=== PATIENT | female | born 1955 | race Two or more races ===

== ENCOUNTER 2023-04-02 10:21 | Emergency (ER) | payer OTHER ==
[~2023-04-02] VITALS: Ht 165.1 cm; Wt 88.8 kg
[2023-04-02] MEDS ORDERED: LACTATED RINGER'S 1,000 ML IV ONE (10:45)
[2023-04-02] MEDS ORDERED: KETOROLAC TROMETH 30 MG/ML 1ML VIAL IV ONE (10:45)
[2023-04-02 11:17] LABS: Basophils # (auto) 0.1 10 ^3/uL (0-0.2); Basophils % (auto) 0.6 % (0.0-2.0); Eosinophils # (auto) 0.1 10 ^3/uL (0-0.8); Eosinophils % (auto) 1.2 % (0.0-7.0); Hematocrit 47.5 % (36.0-46.0); Hemoglobin 15.7 g/dL (12.2-16.2); Lymphocytes # (auto) 3.4 10 ^3/uL (0.4-5.4); Mean Corpuscular Hemoglobin 29.8 pg (28.0-32.0); Mean Corpuscular Volume 90.4 fL (80.0-100.0); Monocytes # (auto) 0.9 10 ^3/uL (0-1.3); Monocytes % (auto) 7.5 % (0.0-12.0); Neutrophils % (auto) 60.7 % (37.0-80.0); Red Blood Cells 5.25 10^6/uL (4.0-5.20); Red Cell Distribution Width 13.7 % (11.8-14.3); White Blood Cell 11.5 10^3/uL (4.4-10.8)
[2023-04-02 11:37] LABS: Alanine Aminotransferase 27 U/L (7-40); Albumin 4.8 g/dL (3.2-4.8); Alkaline Phosphatase 84 U/L (46-116); Anion Gap 6 (5-15); Aspartate Aminotransferase 14 U/L (13-40); BUN/Creatinine Ratio 18.2 (10.0-20.0); Bilirubin, Total 0.5 mg/dL (0.2-1.0); Blood Urea Nitrogen 12 mg/dL (9-23); Calcium 10.5 mg/dL (8.5-10.1); Carbon Dioxide 29 mmol/L (20-30); Chloride 106 mmol/L (98-107); Glucose 115 mg/dL (74-106); Potassium 3.5 mmol/L (3.5-5.1); Sodium 141 mmol/L (136-145); Total Protein 7.3 g/dL (5.7-8.2)
[2023-04-02 11:52] LABS: Urine Bacteria FEW /hpf (None Seen); Urine Blood Negative /uL (Negative); Urine Clarity Clear (Clear); Urine Color Yellow (Yellow); Urine Protein, UAD Negative (Negative); Urine Specific Gravity 1.006 (1.001-1.035); Urine Urobilinogen Normal (Negative); Urine WBC 1 /hpf (0 - 5); Urine pH 5.5 (5.0-8.0)
[2023-04-02 11:52] LABS: Lipase 40 U/L (12-53)
[2023-04-02 16:01] VITALS: BP 115/48; PULSE 93; RESP 18; TEMP 97.9; O2SAT 96
== END 2023-04-02 16:10 | disposition home or self-care (01) ==
LOC: ER 10:21 → EDSEX 10:21 → ER 16:10
DX: K59.00 Constipation, unspecified (principal); E11.9 Type 2 diabetes mellitus without complications; J45.909 Unspecified asthma, uncomplicated; Z98.890 Other specified postprocedural states
CPT/HCPCS: 36415; 74176; 76705; 76856; 80053; 81001; 83690; 85025; 93005; 96361; 96374; 99285; J1885; J7030

== ENCOUNTER 2023-10-01 10:08 | Emergency (ER) | payer OTHER ==
[~2023-10-01] VITALS: Ht 165.1 cm; Wt 89.6 kg
[2023-10-01] MEDS: KETOROLAC TROMETH 30 MG/ML 1ML VIAL IM ONE (12:10)
[2023-10-01] MEDS: methylPREDNISolone SOD SUCC 125 MG/2 ML VL IM ONE (12:10)
[2023-10-01 13:10] VITALS: PULSE 70; RESP 22; O2SAT 97
[2023-10-01 13:20] VITALS: BP 115/69; PULSE 70; RESP 22; TEMP 97.6; O2SAT 97
== END 2023-10-01 13:29 | disposition home or self-care (01) ==
LOC: ER 10:08
DX: S86.111A Strain of other muscle(s) and tendon(s) of posterior muscle group at lower leg level, right leg, initial encounter (principal); E11.9 Type 2 diabetes mellitus without complications; J45.909 Unspecified asthma, uncomplicated; Z98.890 Other specified postprocedural states; X58.XXXA Exposure to other specified factors, initial encounter; Y93.89 Activity, other specified; Y92.89 Other specified places as the place of occurrence of the external cause; Y99.8 Other external cause status
CPT/HCPCS: 73590; 96372; 99284; J1885; J2919

== ENCOUNTER 2024-07-30 09:48 | Inpatient (IN) | payer OTHER ==
[~2024-07-30] VITALS: Ht 165.1 cm; Wt 85.5 kg
[2024-07-30] MEDS: HYDROcodone-ACET 10/325MG TAB PO ONE (10:30)
--- NOTE | 2024-07-30 10:58 | ED.PDOC ---
History of Present Illness HPI Comments 69-year-old female who comes in with chief complaint of neck pain and leg pain. The patient has a history of sciatica and states that the pain also seems to be going down the right leg. She did have some mild swelling of her feet but now she is also having some palpitations. She denies any nausea, vomiting or diarrhea. She states that the palpitations actually started last night when her neck and back pain started. She denies any chest pain or shortness for breath. The patient denies any fever or chills. Chief Complaint: Lower Extremity Time Seen by MD: 10:22 Primary Care Provider: VENANCIO Sanchez Notes: Nurses Notes, Medications, Allergies (No allergies to medication) Allergies: Coded Allergies: NO KNOWN ALLERGIES (Unverified , 04/02/23) Information Source: Patient Mode of Arrival: Ambulatory Severity: Moderate Timing: Days Duration: Since onset Prehospital treatment: None Associated signs and symptoms No nausea, vomiting or diarrhea. The patient is having some palpitations. Past Medical History PAST MEDICAL HISTORY: Asthma, DM Past Medical History (Other): Sciatica, fibromyalgia Surgical History: Hernia Repair, Hysterectomy, Tonsillectomy Surgical History (Other): Colon tumor removal [employer] History: No Pertinent [employer] History Family History Family History: Reviewed,noncontributory to illness Social History Smoker: Non-Smoker Alcohol: Denies ETOH Use Drugs: Denies Drug Use Lives In: Home Constitutional: denies: chills, diaphoresis, fatigue, fever, malaise, sweats, weakness, others EENTM: denies: blurred vision, double vision, ear bleeding, ear discharge, ear drainage, ear pain, ear ringing, eye pain, eye redness, hearing loss, mouth pain, mouth swelling, nasal discharge, nose bleeding, nose congestion, nose pain, photophobia, tearing, throat pain, throat swelling, voice changes, others Respiratory: denies: cough, hemoptysis, orthopnea, SOB at rest, shortness of breath, SOB with excertion, stridor, wheezing, others Cardiovascular: denies: chest pain, dizzy spells, diaphoresis, Dyspnea on exertion, edema, irregular heart beat, left arm pain, lightheadedness, palpitations, PND, syncope, others Gastrointestinal: denies: abdomen distended, abdominal pain, blood streaked bowels, constipated, diarrhea, dysphagia, difficulty swallowing, hematemesis, melena, nausea, poor appetite, poor fluid intake, rectal bleeding, rectal pain, vomiting, others Genitourinary: denies: abnormal vagina bleeding, burning, dyspareunia, dysuria, flank pain, frequency, hematuria, incontinence, pain, , vagina discharge, urgency, others Neurological: denies: dizziness, fainting, headache, left sided numbness, left sided weakness, numbness, paresthesia, pre-existing deficit, right sided numbness, right sided weakness, seizure, speech problems, tingling, tremors, weakness, others Musculoskeletal: reports: back pain, neck pain; denies: gout, joint pain, joint swelling, muscle pain, muscle stiffness, others Integumetry: denies: bruises, change in color, change in hair/nails, dryness, laceration, lesions, lumps, rash, wounds, others Allergic/Immunocompromised: denies: Difficulty Healing, Frequent Infections, Hives, Itching, others Hematologic/Lymphatic: denies: anemia, blood clots, easy bleeding, easy bruising, swollen glands, others Endocrine: denies: excessive hunger, excessive sweating, excessive thirst, excessive urination, flushing, intolerance to cold, intolerance to heat, unexplained weight gain, unexplained weight loss, others Psychiatric: denies: anxiety, bipolar disorder, depression, hopeless, panic disorder, schizophrenia, sleepless, suicidal, others Physical Exam General Appearance: Moderate Distress HEENT: Normal ENT Inspection, Pharynx Normal, TMs Normal Neck: Limited Range of Motion, Tender Lateral Respiratory: Chest Non-Tender, Lungs Clear, No Accessory Muscle Use, No Resp iratory Distress, Normal Breath Sounds Cardiovascular: No Edema, No JVD, No Murmur, No Gallop, Normal Peripheral Pulses, Regular Rate/Rhythm Breast Exam: Deferred Gastrointestinal: No Organomegaly, Non Tender, No Pulsatile Mass, Normal Bowel Sounds, Soft Genitalia: Deferred Pelvic: Deferred Rectal: Deferred Extremities: No calf tenderness, Normal capillary refill, Normal inspection, Normal range of motion, Non-tender, No pedal edema Musculoskeletal : Apperance: Normal Neurologic: Alert, labor relations analyst II-XII nml as Tested, Motor Weakness, Normal Affect, Normal Mood, No Sensory Deficits Cerebellar Function: Normal Reflexes: Normal Skin: Dry, Normal Color, Warm Lymphatic: No Adenopathy Was a procedure done? Was a procedure done?: No Differential Dx Considerations may include: Strain, generalized weakness, ACS, ME X-Ray, Labs, Meds, VS Vital Signs Date Time Temp Pulse Resp B/P (MAP) Pulse Ox O2 Delivery O2 Flow Rate FiO2 07/30/24 12:48 98.8 79 18 112/68 (83) 98 98.8 07/30/24 11:21 81 07/30/24 11:00 Room Air* 0 21 07/30/24 10:20 87 07/30/24 10:18 98.3 91 18 116/58 (77) 96 98.3 Lab Test 07/30/24 11:30 07/30/24 10:54 07/30/24 10:36 Range/Units Troponin I High Sensitivity 3 L 4 </=34 ng/L Urine Color Yellow Yellow Urine Clarity Clear Clear Urine pH 5.5 5.0-9.0 Urine Specific [place] 1.020 1.001-1.035 Urine Protein Negative Negative Urine Ketones Negative Negative Urine Blood Negative Negative /uL Urine Nitrite Negative Negative Urine Bilirubin Negative Negative Urine Urobilinogen Normal Negative mg/dL Urine Leukocyte Esterase 1+ Negative /uL Urine RBC 2 0 - 4 /hpf Urine Microscopic WBC 5 0-5 /HPF Urine Squamous Epithelial Cells Few <5 /hpf Urine Bacteria None seen None Seen /hpf Urine Mucus Few None Seen Urine Glucose Normal Normal mg/dL White Blood Count 6.7 4.4-10.8 10^3/uL Red Blood Count 4.95 4.0-5.20 10^6/uL Hemoglobin 15.2 12.2-16.2 g/dL Hematocrit 45.1 36.0-46.0 % Mean Corpuscular Volume 91.1 80.0-100.0 fL Mean Corpuscular Hemoglobin 30.6 28.0-32.0 pg Mean Corpuscular Hemoglobin Concent 33.6 32.0-36.0 g/dL Red Cell Distribution Width 14.9 H 11.8-14.3 % Platelet Count 154 140-450 10^3/uL Mean Platelet Volume 7.5 6.9-10.8 fL Neutrophils (%) (Auto) 64.7 37.0-80.0 % Lymphocytes (%) (Auto) 24.8 10.0-50.0 % Monocytes (%) (Auto) 9.0 0.0-12.0 % Eosinophils (%) (Auto) 1.2 0.0-7.0 % Basophils (%) (Auto) 0.3 0.0-2.0 % Neutrophils # (Auto) 4.3 1.6-8.6 10 ^3/uL Lymphocytes # (Auto) 1.7 0.4-5.4 10 ^3/uL Monocytes # (Auto) 0.6 0-1.3 10 ^3/uL Eosinophils # (Auto) 0.1 0-0.8 10 ^3/uL Basophils # (Auto) 0 0-0.2 10 ^3/uL Nucleated Red Blood Cells 0.1 % D-Dimer, Quantitative 3.79 H 0.0-0.49 mg/L FEU Sodium Level 141 136-145 mmol/L Potassium Level 3.9 3.5-5.1 mmol/L Chloride Level 108 H 98-107 mmol/L Carbon Dioxide Level 25 20-31 mmol/L Anion Gap 8 5-15 Blood Urea Nitrogen 11 9-23 mg/dL Creatinine 0.56 0.550-1.02 mg/dL Glomerular Filtration Rate Calc 100 >90 mL/min BUN/Creatinine Ratio 19.6 10.0-20.0 Serum Glucose 98 74-106 mg/dL Calcium Level 10.4 8.7-10.4 mg/dL IV Hep-Lock was established The urine test is positive for UTI The D-dimer is elevated at 3.79 IV Hep-Lock was established Based on the D-dimer, we are getting a CAT scan of the chest to rule out PE The chemistry panel is within normal limits. The patient's CBC is within normal limits The patient was started on Rocephin 1 g IV piggyback for the UTI The patient is being admitted Images Reviewed?: Images reviewed and evaluated by me Time of 1ST Reevaluation: 10:58 Reevaluation 1ST: Unchanged Patient Education/Counseling: Diagnosis, Treatment, Prognosis Family Education/Counseling: No Family Present Departure 1 Departure Time of Disposition: 14:36 Impression: Primary Impression: Acute chest pain Additional Impressions: UTI (urinary tract infection) Qualified Codes: N30.00 - Acute cystitis without hematuria Elevated d-dimer Disposition: ADMITTED INPATIENT Admit to: Tele Condition: Fair Critical Care Note Critical Care Time?: No Stability Stability form required: Yes Unstable for transfer: Telemetry monitoring (Telemetry monitoring required), ED Physician Assesment (Clinical assesment) Heart Score Heart Score: Heart Score Response (Comments) Value History Slightly Suspicious 0 EKG Normal 0 Age >65 2 Risk Factors >3 or Hx ASHD 2 Troponin Normal limit 0 Total 4 NITIN COX MD July 30, 2024 10:58
--- NOTE | 2024-07-30 11:08 | DVH ---
XY CHEST TWO VIEWS ROUTINE CLINICAL HISTORY: sob COMPARISON: None TECHNIQUE: Frontal and lateral view of the chest was obtained FINDINGS: Lines and Tubes: None Lungs: No focal consolidation. Pleura: No effusion. No pneumothorax. Cardiomediastinal contours: Unremarkable Bones: No acute osseous abnormality. IMPRESSION: No acute cardiopulmonary disease.
[2024-07-30 11:12] LABS: Urine Bacteria None Seen /hpf (None Seen)
[2024-07-30 11:17] LABS: Potassium 3.9 mmol/L (3.5-5.1); Sodium 141 mmol/L (136-145)
[2024-07-30 11:18] LABS: Anion Gap 8 (5-15); Carbon Dioxide 25 mmol/L (20-31); Chloride 108 mmol/L (98-107)
[2024-07-30 11:19] LABS: Basophils # (auto) 0 10 ^3/uL (0-0.2); Basophils % (auto) 0.3 % (0.0-2.0); Calcium 10.4 mg/dL (8.7-10.4); Eosinophils # (auto) 0.1 10 ^3/uL (0-0.8); Eosinophils % (auto) 1.2 % (0.0-7.0); Hematocrit 45.1 % (36.0-46.0); Hemoglobin 15.2 g/dL (12.2-16.2); Lymphocytes # (auto) 1.7 10 ^3/uL (0.4-5.4); Lymphocytes % (auto) 24.8 % (10.0-50.0); Mean Corpuscular Hemoglobin 30.6 pg (28.0-32.0); Mean Corpuscular Hgb Conc. 33.6 g/dL (32.0-36.0); Mean Corpuscular Volume 91.1 fL (80.0-100.0); Monocytes # (auto) 0.6 10 ^3/uL (0-1.3); Neutrophils # (auto) 4.3 10 ^3/uL (1.6-8.6); Neutrophils % (auto) 64.7 % (37.0-80.0); Nucleated Red Blood Cells % 0.1 %; Platelet Count (auto) 154 10^3/uL (140-450); Red Blood Cells 4.95 10^6/uL (4.0-5.20); Red Cell Distribution Width 14.9 % (11.8-14.3); White Blood Cell 6.7 10^3/uL (4.4-10.8)
--- NOTE | 2024-07-30 11:22 | ECG ---
[facility] Test Date: 2024-07-30 Test Time: 11:21:18 Pat Name: WILMAR BARILLAS Department: ER Room: Gender: F Furnace Feeder: MIKE : 1955 Requested By: REBECCA MUHAMMAD Order Number: [id number] Reading MD: Measurements Intervals [place] Rate: 81 P: 58 IA: 178 QRS: 70 QRSD: 96 T: 67 QT: 344 QTc: 400 Interpretive Statements Sinus rhythm Low voltage, precordial leads RSR' in V1 or V2, right VCD or RVH ST elevation, consider inferior injury Please click the below link to view image of tracing.
[2024-07-30 11:23] LABS: BUN/Creatinine Ratio 19.6 (10.0-20.0); Blood Urea Nitrogen 11 mg/dL (9-23); Glucose 98 mg/dL (74-106)
[2024-07-30 11:35] LABS: Urine Blood Negative /uL (Negative); Urine Clarity Clear (Clear); Urine Color Yellow (Yellow); Urine Mucus FEW (None Seen); Urine Protein, UAD Negative (Negative); Urine Squamous Epithelial Cell FEW /hpf (<5); Urine Urobilinogen Normal (Negative); Urine WBC 5 /HPF (0-5); Urine pH 5.5 (5.0-9.0)
--- NOTE | 2024-07-30 13:06 | DVHHP2 ---
History of Present Illness Reason for Visit: Neck and leg pain History of Present Illness 69-year-old female past medical history psych adequate nerve asthma diabetes fibromyalgia surgical history hernia repair hysterectomy: Tumor tonsillectomy chief complaint patient states he has been dealing with neck pain he has been going on for the last three weeks she stated two weeks ago she got an injection in her cervical spine by her pain management doctor despite this she still continues to have pain she states the pain got worse yesterday. She also complains of pain and swelling to bilateral lower extremities in the bottom of her feet they are red and tender she has been dealing with that for three weeks also with the last two days the symptoms got worse the pain is worse when she is ambulating on her feet. She denies any chest pain no fever no recent fall or injury, patient does state she had some shortness of the breath. She denies any vomiting or diarrhea or weakness. When evaluating patient's labs and imaging from ED [place] was provided CBC was unremarkable BNP was unremarkable troponin was negative x2 D-dimer was elevated at 3.27 which we will need to pursue a CT angio of the chest rule out PE we will put on Lovenox 1 milligram/kilogram for now until PE is ruled out chest x-ray was unremarkable. With these findings we will admit patient for further workup and care and pain management Past Medical History See HPI above Past Surgical History See HPI above Family History Reviewed, non-contributory to the management of this case. Past Social History The patient lives at home, denies smoking, alcohol or illicit drugs abuse. Review of Systems Constitutional: No: Fever, Chills, Sweats, Weakness, Malaise, Other Eyes: No: Pain, Vision change, Conjunctivae inflammation, Eyelid inflammation, Other, Redness ENT: No: Ear pain, Ear discharge, Nose pain, Nose discharge, Nose congestion, Mouth pain, Mouth swelling, Throat pain, Throat swelling, Other Respiratory: Shortness of breath; No: Cough, Dry, SOB with excertion, Wheezing, Hemoptysis, Pleuritic Pain, Sputum, Wheezing, Other Cardiovascular: No: Chest Pain, Palpitations, Orthopnea, Paroxysmal Noc. Dyspnea, Edema, Lt Headedness, Other Gastrointestinal: No: Nausea, Vomiting, Abdominal Pain, Diarrhea, Constipation, Melena, Hematochezia, Other Genitourinary: No Dysuria, No Frequency, No Incontinence, No Hematuria, No Retention, No Other Musculoskeletal: neck pain, foot pain (swelling to bilateral lower extremities and redness of the bottom of the foot); No: other, shoulder pain, arm pain, back pain, hand pain, leg pain Skin: No: Rash, Lesions, Jaundice, Bruising, Other Neurological: Weakness; No: Numbness, Incoordination, Change in speech, Confusion, Seizures, Other Allergies: Coded Allergies: NO KNOWN ALLERGIES (Unverified , 04/02/23) Exam Vital Signs Vital Signs Date Time Temp Pulse Resp B/P (MAP) Pulse Ox O2 Delivery O2 Flow Rate FiO2 07/30/24 12:48 98.8 79 18 112/68 (83) 98 98.8 07/30/24 11:00 Room Air* 0 21 General Appearance: Alert, Oriented X3, Cooperative, No acute distress HEENT: Atraumatic, PERRLA, EOMI, Mucous membr. moist/pink, Other (Full range of motion of the neck no nuchal rigidity noted) Respiratory: Clear to auscultation, Normal air movement Cardiovascular: Regular rate, Normal S1, Normal S2, No murmurs Abdominal: Normal bowel sounds, Soft, No tenderness, No hepatospenomegaly, No masses Extremities: No cyanosis, Other (Bilateral lower extremity with edema bilateral plantar of the feet with mild redness compartments soft no open wounds warm to touch positive pulse) Skin: No rashes, No breakdown, No significant lesion Neuro: Normal gait, Normal speech, Sensation intact, Cranial nerves 3-12 NL, Reflexes 2+ Psych/Mental Status: Mental status NL, Mood NL Labs/Xrays Chest x-ray unremarkable I reviewed labs, imaging CT scan abdomen pelvis, EKG and all diagnostic studies on this patient from ED records and the medical chart Labs Test 07/30/24 11:30 07/30/24 10:54 07/30/24 10:36 Range/Units Troponin I High Sensitivity 3 L </=34 ng/L Urine Color Yellow Yellow Urine Clarity Clear Clear Urine pH 5.5 5.0-9.0 Urine Specific [place] 1.020 1.001-1.035 Urine Protein Negative Negative Urine Ketones Negative Negative Urine Blood Negative Negative /uL Urine Nitrite Negative Negative Urine Bilirubin Negative Negative Urine Urobilinogen Normal Negative mg/dL Urine Leukocyte Esterase 1+ Negative /uL Urine RBC 2 0 - 4 /hpf Urine Microscopic WBC 5 0-5 /HPF Urine Squamous Epithelial Cells Few <5 /hpf Urine Bacteria None seen None Seen /hpf Urine Mucus Few None Seen Urine Glucose Normal Normal mg/dL White Blood Count 6.7 4.4-10.8 10^3/uL Red Blood Count 4.95 4.0-5.20 10^6/uL Hemoglobin 15.2 12.2-16.2 g/dL Hematocrit 45.1 36.0-46.0 % Mean Corpuscular Volume 91.1 80.0-100.0 fL Mean Corpuscular Hemoglobin 30.6 28.0-32.0 pg Mean Corpuscular Hemoglobin Concent 33.6 32.0-36.0 g/dL Red Cell Distribution Width 14.9 H 11.8-14.3 % Platelet Count 154 140-450 10^3/uL Mean Platelet Volume 7.5 6.9-10.8 fL Neutrophils (%) (Auto) 64.7 37.0-80.0 % Lymphocytes (%) (Auto) 24.8 10.0-50.0 % Monocytes (%) (Auto) 9.0 0.0-12.0 % Eosinophils (%) (Auto) 1.2 0.0-7.0 % Basophils (%) (Auto) 0.3 0.0-2.0 % Neutrophils # (Auto) 4.3 1.6-8.6 10 ^3/uL Lymphocytes # (Auto) 1.7 0.4-5.4 10 ^3/uL Monocytes # (Auto) 0.6 0-1.3 10 ^3/uL Eosinophils # (Auto) 0.1 0-0.8 10 ^3/uL Basophils # (Auto) 0 0-0.2 10 ^3/uL Nucleated Red Blood Cells 0.1 % D-Dimer, Quantitative 3.79 H 0.0-0.49 mg/L FEU Sodium Level 141 136-145 mmol/L Potassium Level 3.9 3.5-5.1 mmol/L Chloride Level 108 H 98-107 mmol/L Carbon Dioxide Level 25 20-31 mmol/L Anion Gap 8 5-15 Blood Urea Nitrogen 11 9-23 mg/dL Creatinine 0.56 0.550-1.02 mg/dL Glomerular Filtration Rate Calc 100 >90 mL/min BUN/Creatinine Ratio 19.6 10.0-20.0 Serum Glucose 98 74-106 mg/dL Calcium Level 10.4 8.7-10.4 mg/dL Assessment/Plan Assessment/Plan acute intractable leg pain likely from sciatica and neck pain not likely meningitis (no fever no nuchal rigidty) ordered xray of neck fu results ekg no stemi trop negative x2 ordered lidocane patch ordered morphine as needed for pain ordered gabapentin bid for now acute ble edema ordered us eval for dvt ordered lovenox 1mg/kg for now acute plantar pain and redness can be from diabetic neuropathy ordered arterial study fu results ordered gabapentin for now acute elevation in ddimer r/o pe ordered ct angio rule out pe ordered lovenox 1mg/kg for now monitor for resp distress chronic problems asthma dm ISS fibromylagia fen/ppx diet hl scd lovenox for now no gi ppx since no hx of gerds or gi bleed plan admit to medicine Plan discussed with: Patient Date of Service: July 30, 2024 Billing Provider: HALLEY THOMAS DNP Common Visit Codes: 84530-HFXESRM INP/OBS CARE (HIGH) HALLEY THOMAS DNP July 30, 2024 13:06
[2024-07-30] MEDS ORDERED: DOCUSATE SOD 100 MG CAP PO PRN (14:30)
[2024-07-30] MEDS ORDERED: NITROGLYCERIN 0.4 MG SL TAB SL PRN (14:30)
[2024-07-30] MEDS ORDERED: DEXTROSE (50%) 50ML SYRG IV PRN (14:30)
[2024-07-30] MEDS: IOHEXOL 350 MG/ML 100ML IJ ONE (15:03)
--- NOTE | 2024-07-30 15:43 | DVH ---
Procedure: CT CT ANGIO CHEST CONTRAST 07/30/2024 02:59 PM History: eval for pe Comparison: None Technique: After the uneventful administration of 80 mL of Isovue 370 contrast intravenously, CT imag ing was performed through the chest. Coronal and sagittal reformations were performed by the alessia curtis. 3D image postprocessing was performed on a dedicated workstation and images were used for interpretat ion and reporting. Radiation Dose : CTDI volume is 22.90/23.68 mGy. Dose-length product is 795.37 mGy*cm Findings: Lower Neck: Visualized portions of the thyroid gland are unremarkable. Aorta and Vasculature: There is normal caliber of thoracic aorta without evidence of aortic dissectio n, intramural hematoma or aneurysm. There is uncoiling and atherosclerotic change thoracic aorta. Lymph Nodes: There is no significant intrathoracic or axillary lymphadenopathy on CT size criteria. Mediastinum: Heart size is normal. There is no pericardial effusion. The esophagus is unremarkab le. Lungs: Bilateral atelectatic changes are seen. No other pleural or parenchymal abnormality is ident ified. The airway is patent. There is no evidence for pneumothorax. Musculoskeletal: No aggressive focal bony lesions, acute fractures or dislocation. There is mild mult ilevel osteoarthritic changes of the thoracic spine. Chest wall: Unremarkable Partially visualized upper abdomen demonstrates small hiatal hernia. Otherwise no acute process seen in the visualized portion of abdomen. There is occasional diverticulosis IMPRESSION: 1. No evidence of acute intrathoracic pathology identified. 2. No evidence of pulmonary embolus.
--- NOTE | 2024-07-30 16:49 | DVH ---
Bilateral lower extremity venous duplex Clinical History: eval for dvt Comparison: None Technique: Duplex Doppler evaluation of the deep venous systems of both lower extremities from the common femora l veins to the popliteal veins including color Doppler and spectral/pulsed waveform analysis was perf ormed. Findings: RIGHT SIDE: The common femoral vein demonstrates appropriate compressibility and waveform variability. There is compressibility/patency of the great saphenous vein at the proximal thigh. The femoral vein demonstrates appropriate compressibility and waveform variability. The deep femoral vein demonstrates appropriate compressibility and waveform variability. The popliteal vein demonstrates appropriate compressibility and waveform variability. There is normal compressibility at the tibioperoneal trunk. LEFT SIDE: The common femoral vein demonstrates appropriate compressibility and waveform variability. There is compressibility/patency of the great saphenous vein at the proximal thigh. The femoral vein demonstrates appropriate compressibility and waveform variability. The deep femoral vein demonstrates appropriate compressibility and waveform variability. The popliteal vein demonstrates appropriate compressibility and waveform variability. There is normal compressibility at the tibioperoneal trunk. Impression: 1. No right or left femoropopliteal venous thrombosis.
--- NOTE | 2024-07-30 16:50 | DVH ---
Bilateral Lower Extremity Arterial Duplex Clinical History: eval for arterial occlusion Comparison: None Technique: Duplex Doppler evaluation including color Doppler and spectral/pulsed waveform analysis of the lower extremity arteries was performed. Findings: NO ELEVATED PEAK FLOW VELOCITIES. MILD PLAQUING SEEN BOTH DISTAL ANTERIOR TIBIAL AND DORSALIS PEDIS ARTERIES. IMPRESSION: NO SIGNIFICANT STENOSES NO OCCLUSIONS 1. REFERENCE VALUES, [facility] ([facility]) vascular Imaging Lab Criteria: Peak systolic velocity ranges (in cm/sec) are as follows: <150 cm/s - <20 % stenosis 150-200 cm/s - 20-49% stenosis 200-300 cm/s - 50-75% stenosis >300 cm/s -> 75% stenosis
--- NOTE | 2024-07-30 16:59 | DVH ---
INDICATION: EVAL FOR ACUTE NECK PAIN COMPARISON: None TECHNIQUE: 3 views of the cervical spine were obtained. FINDINGS: The cervical vertebral alignment is normal. The predental space is normal. The intervertebral disc spaces are well-maintained. No significant facet arthropathy is noted. No acute fracture, vertebral compression deformity or aggressive osseous lesions. Early bridging oste ophyte seen at C5-C6 and possibly C6-7. The imaged lung apices are unremarkable. IMPRESSION: 1. No acute fracture. 2. Osteoarthritic changes with early bridging osteophytes seen at C5-C6 and C6-C7. 3. Osteopenia
[2024-07-30] MEDS: ACCU-CHEK COMFORT CURVE STRIP VI SCH (17:00)
[2024-07-30] MEDS: InsuLIN REG 1unit/0.01ml Soln (100units/ml) SC SCH (17:00)
[2024-07-30] MEDS: ENOXAPARIN SOD 100 MG/1 ML SYRINGE SC ONE (17:28)
[2024-07-30] MEDS: LIDOCAINE 5% TOPICAL PATCH TOP ONE (17:28)
[2024-07-30 18:12] VITALS: BP 128/76; PULSE 78; RESP 16; TEMP 98; O2SAT 100
[2024-07-30 18:18] VITALS: BP 128/76; PULSE 78; RESP 16; TEMP 98; O2SAT 100
[2024-07-30] MEDS ORDERED: PANT40T PO (18:43)
[2024-07-30] MEDS ORDERED: SEMA1INJ2 (18:43)
[2024-07-30] MEDS ORDERED: HYDR-4069 PO (18:43)
[2024-07-30] MEDS ORDERED: METF-370 PO (18:43)
[2024-07-30] MEDS ORDERED: ALBU108A5 INH (18:43)
[2024-07-30] MEDS ORDERED: TIZA-206 PO (18:43)
[2024-07-30] MEDS ORDERED: MONT-8 PO (18:43)
[2024-07-30] MEDS ORDERED: SIMV10TA20 PO (18:43)
[2024-07-30] MEDS ORDERED: GABA800T97 PO (18:43)
[2024-07-30] MEDS: MORPHINE SULFATE INJ 2 MG/ml SYRG IV PRN (20:28)
[2024-07-30] MEDS: ONDANSETRON HCL 4 MG/2 ML VIAL IV PRN (20:37)
[2024-07-30 21:00] VITALS: BP 120/67; PULSE 76; RESP 18; TEMP 98.4; O2SAT 95
[2024-07-30] MEDS: GABAPENTIN 300 MG CAP PO SCH (22:39)
[2024-07-30] MEDS: ENOXAPARIN SOD 100 MG/1 ML SYRINGE SC SCH (23:42)
[2024-07-31 01:00] VITALS: BP 137/76; PULSE 80; RESP 18; TEMP 98; O2SAT 95
[2024-07-31 05:00] VITALS: BP 107/61; PULSE 84; RESP 18; TEMP 97.7; O2SAT 96
[2024-07-31 06:11] LABS: Basophils # (auto) 0 10 ^3/uL (0-0.2); Basophils % (auto) 0.4 % (0.0-2.0); Eosinophils # (auto) 0.1 10 ^3/uL (0-0.8); Eosinophils % (auto) 1.3 % (0.0-7.0); Hematocrit 41.5 % (36.0-46.0); Hemoglobin 14.2 g/dL (12.2-16.2); Lymphocytes # (auto) 1.6 10 ^3/uL (0.4-5.4); Lymphocytes % (auto) 28.3 % (10.0-50.0); Mean Corpuscular Hgb Conc. 34.3 g/dL (32.0-36.0); Mean Corpuscular Volume 90.2 fL (80.0-100.0); Monocytes # (auto) 0.5 10 ^3/uL (0-1.3); Monocytes % (auto) 9.3 % (0.0-12.0); Neutrophils # (auto) 3.5 10 ^3/uL (1.6-8.6); Neutrophils % (auto) 60.7 % (37.0-80.0); Nucleated Red Blood Cells % 0.1 %; Platelet Count (auto) 141 10^3/uL (140-450); White Blood Cell 5.7 10^3/uL (4.4-10.8)
[2024-07-31 06:31] LABS: Alanine Aminotransferase 21 U/L (7-40); Albumin 3.6 g/dL (3.2-4.8); Anion Gap 7 (5-15); BUN/Creatinine Ratio 28.6 (10.0-20.0); Bilirubin, Total 0.6 mg/dL (0.2-1.0); Blood Urea Nitrogen 14 mg/dL (9-23); Calcium 8.9 mg/dL (8.7-10.4); Carbon Dioxide 28 mmol/L (20-31); Potassium 3.5 mmol/L (3.5-5.1); Sodium 142 mmol/L (136-145)
[2024-07-31 06:33] LABS: Alkaline Phosphatase 44 U/L (46-116); Aspartate Aminotransferase 12 U/L (13-40); Chloride 107 mmol/L (98-107); Glucose 73 mg/dL (74-106); Total Protein 5.6 g/dL (5.7-8.2)
[2024-07-31 08:00] VITALS: PULSE 84; RESP 16
[2024-07-31 08:50] VITALS: BP 114/67; PULSE 83; RESP 18; TEMP 98; O2SAT 95
[2024-07-31] MEDS: LIDOCAINE 5% TOPICAL PATCH TOP SCH (09:15)
[2024-07-31 09:46] VITALS: BP 107/60; PULSE 78; RESP 18
--- NOTE | 2024-07-31 10:28 | ECG ---
[facility] Test Date: 2024-07-30 Test Time: 10:20:05 Pat Name: WILMAR BARILLAS Department: ER Room: 0297 Gender: F Chancellor: PAYAL : 1955 Requested By: REBECCA MUHAMMAD Order Number: [id number] Reading MD: Measurements Intervals [place] Rate: 87 P: 47 NE: 181 QRS: 35 QRSD: 101 T: 49 QT: 340 QTc: 409 Interpretive Statements Sinus rhythm Probable left atrial enlargement Inferior infarct, old Please click the below link to view image of tracing.
--- NOTE | 2024-07-31 11:33 | DVHDS2 ---
Discharge Summary Date of Admission July 30, 2024 at 14:19 Date of Discharge: July 31, 2024 Labs/Diagnostic Data: Laboratory Results Test 07/31/24 04:40 07/30/24 21:52 07/30/24 11:30 07/30/24 10:54 White Blood Count 5.7 10^3/uL (4.4-10.8) Red Blood Count 4.60 10^6/uL (4.0-5.20) Hemoglobin 14.2 g/dL (12.2-16.2) Hematocrit 41.5 % (36.0-46.0) Mean Corpuscular Volume 90.2 fL (80.0-100.0) Mean Corpuscular Hemoglobin 31.0 pg (28.0-32.0) Mean Corpuscular Hemoglobin Concent 34.3 g/dL (32.0-36.0) Red Cell Distribution Width 15.0 % (11.8-14.3) Platelet Count 141 10^3/uL (140-450) Mean Platelet Volume 7.5 fL (6.9-10.8) Neutrophils (%) (Auto) 60.7 % (37.0-80.0) Lymphocytes (%) (Auto) 28.3 % (10.0-50.0) Monocytes (%) (Auto) 9.3 % (0.0-12.0) Eosinophils (%) (Auto) 1.3 % (0.0-7.0) Basophils (%) (Auto) 0.4 % (0.0-2.0) Neutrophils # (Auto) 3.5 10 ^3/uL (1.6-8.6) Lymphocytes # (Auto) 1.6 10 ^3/uL (0.4-5.4) Monocytes # (Auto) 0.5 10 ^3/uL (0-1.3) Eosinophils # (Auto) 0.1 10 ^3/uL (0-0.8) Basophils # (Auto) 0 10 ^3/uL (0-0.2) Nucleated Red Blood Cells 0.1 % Sodium Level 142 mmol/L (136-145) Potassium Level 3.5 mmol/L (3.5-5.1) Chloride Level 107 mmol/L (98-107) Carbon Dioxide Level 28 mmol/L (20-31) Anion Gap 7 (5-15) Blood Urea Nitrogen 14 mg/dL (9-23) Creatinine 0.49 mg/dL (0.550-1.02) Glomerular Filtration Rate Calc 103 mL/min (>90) BUN/Creatinine Ratio 28.6 (10.0-20.0) Serum Glucose 73 mg/dL (74-106) Calcium Level 8.9 mg/dL (8.7-10.4) Total Bilirubin 0.6 mg/dL (0.2-1.0) Aspartate Amino Transferase (AST) 12 U/L (13-40) Alanine Aminotransferase (ALT) 21 U/L (7-40) Alkaline Phosphatase 44 U/L (46-116) Total Protein 5.6 g/dL (5.7-8.2) Albumin 3.6 g/dL (3.2-4.8) POC Glucose 134 mg/dl (70-106) Troponin I High Sensitivity 3 ng/L (</=34) Urine Color Yellow (Yellow) Urine Clarity Clear (Clear) Urine pH 5.5 (5.0-9.0) Urine Specific Kuna 1.020 (1.001-1.035) Urine Protein Negative (Negative) Urine Ketones Negative (Negative) Urine Blood Negative /uL (Negative) Urine Nitrite Negative (Negative) Urine Bilirubin Negative (Negative) Urine Urobilinogen Normal mg/dL (Negative) Urine Leukocyte Esterase 1+ /uL (Negative) Urine RBC 2 /hpf (0 - 4) Urine Microscopic WBC 5 /HPF (0-5) Urine Squamous Epithelial Cells Few /hpf (<5) Urine Bacteria None seen /hpf (None Seen) Urine Mucus Few (None Seen) Urine Glucose Normal mg/dL (Normal) Test 07/30/24 10:36 D-Dimer, Quantitative 3.79 mg/L FEU (0.0-0.49) Other Laboratory Tests 07/31/24 04:40 Brief Hx & Hospital Course: Final diagnoses: 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 Peripheral neuropathy Type 2 diabetes Obesity Fibromyalgia History of asthma Chronic pain syndrome Elevated D-dimer not of significant importance 69-year-old female who was admitted because of pain in her neck and her feet She had an for few weeks The pain in her feet is burning sensation at the bottom that she had for a long time She takes gabapentin for the neuropathy pain She is on pain management for her neck pain Evaluation here showed normal chest x-ray, D-dimer was high but the CT angiogram of the lung was negative for PE and the DVT check for the legs was negative for DVT, arterial Doppler of the legs was normal 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 Troponins are negative The patient would like to go home She is asymptomatic other than the above-mentioned complaints No chest pain Discharged home Follow up with the primary care physician as soon as possible Continue the pain management program she is on already Continue gabapentin that she takes at home Continue the other home medications Condition at Discharge: Stable Final Diagnosis/Problems List 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 Patient was counseled about treatment plan, medications, possible side effects, patientverbalized understanding. All questions were answered to the best of my ability. This discharge took greater then 30 minutes in planning, reviewing documentation, counseling the patient, and discussing with other team members." ASSESSMENT ASSESSMENT Assessment Date of Service: July 31, 2024 Billing Provider: TAMIKO YEN MD Common Visit Codes: NOT BILLABLE TAMIKO YEN MD July 31, 2024 11:33
== END 2024-07-31 14:15 | disposition home or self-care (01) | DRG 552 ==
LOC: ER 09:48 → OVERFLOW 14:19 → WEST WING 23:59
PROVIDERS: ADMIT Internal Medicine Geriatric Medicine; ATTEND Internal Medicine Geriatric Medicine
DX: M47.812 Spondylosis without myelopathy or radiculopathy, cervical region (principal); N39.0 Urinary tract infection, site not specified; M54.31 Sciatica, right side; R60.0 Localized edema; E11.40 Type 2 diabetes mellitus with diabetic neuropathy, unspecified; E66.9 Obesity, unspecified; M54.9 Dorsalgia, unspecified; J45.909 Unspecified asthma, uncomplicated; M79.7 Fibromyalgia; G89.4 Chronic pain syndrome; R79.89 Other specified abnormal findings of blood chemistry; Z90.710 Acquired absence of both cervix and uterus; Z68.31 Body mass index [BMI] 31.0-31.9, adult
CPT/HCPCS: 36415; 71046; 71275; 72040; 80048; 80053; 81001; 82962; 84484; 85025; 85379; 93005; 93925; 93970; G0378; J1815; J2405